=== PATIENT | female | born 1980 | race Caucasian/White ===

== ENCOUNTER 2017-03-09 14:51 | Emergency (ER) | payer MEDICAID ==
[~2017-03-09] VITALS: Ht 152.4 cm; Wt 79.0 kg
[~2017-03-09 14:51] MED LIST: IBUP800T25 PO; PERCOCET PO; PNV1TABL43 PO
[2017-03-09 14:53] VITALS: Ht 152.4 cm; Wt 79.0 kg
[2017-03-09] MEDS ORDERED: SOD CHLORIDE 0.9% 1,000 ML IV STA (16:03)
[2017-03-09] MEDS ORDERED: ONDANSETRON 4 MG INJ IV STA (16:03)
[2017-03-09 16:29] LABS: ADD SCAN DIFF NO
[2017-03-09 16:30] LABS: BASOPHILS % 0.3 % (0.0-2.0); EOSINOPHILS # 0.2 10^3/ul (0.0-0.5); EOSINOPHILS % 1.5 % (0.0-7.0); HEMATOCRIT 36.7 % (37.0-47.0); HEMOGLOBIN 11.4 g/dl (12.0-16.0); LYMPHOCYTES # 2.7 10^3/ul (0.8-2.9); MEAN CORPUSCULAR HEMOGLOBIN 27.6 pg (29.0-33.0); MEAN CORPUSCULAR HGB CONC 31.1 g/dl (32.0-37.0); MEAN CORPUSCULAR VOLUME 88.9 fl (82.0-101.0); MEAN PLATELET VOLUME 9.1 fl (7.4-10.4); MONOCYTE # 0.6 10^3/ul (0.3-0.9); MONOCYTES % 6.2 % (0.0-11.0); NEUTROPHIL # 6.5 10^3/ul (1.6-7.5); NEUTROPHILS % 64.6 % (39.0-77.0); PLATELET COUNT 392 10^3/UL (140-415); RED BLOOD COUNT 4.13 10^6/ul (4.20-5.40); RED CELL DISTRIBUTION WIDTH 13.5 % (11.5-14.5)
[2017-03-09 16:37] LABS: ADD UMIC YES; URINE BILIRUBIN (Dip) NEGATIVE (NEGATIVE); URINE BLOOD (Dip) 3+ (NEGATIVE); URINE COLOR LT. YELLOW (YELLOW); URINE GLUCOSE (Dip) NEGATIVE (NEGATIVE); URINE KETONES (Dip) NEGATIVE (NEGATIVE); URINE LEUKOCYTE ESTERASE (Dip) TRACE (NEGATIVE); URINE NITRITE (Dip) NEGATIVE (NEGATIVE); URINE TOTAL PROTEIN (Dip) NEGATIVE (NEGATIVE); URINE UROBILINOGEN (Dip) 0.2 E.U./dL (0.1-1.0)
--- NOTE | 2017-03-09 16:45 | RADRPT ---
PROCEDURE: OBSTETRICAL ULTRASOUND WITH ENDOVAGINAL IMAGES CLINICAL INDICATION: Vaginal bleeding TECHNIQUE: Multiple sonographic images of the pelvis were obtained utilizing a transabdominal and endovaginal technique. The images were reviewed on a PACS workstation. COMPARISON: None. FINDINGS: The uterus is retroverted. There is a single intrauterine with mean sac diameter of 1.41 cm and crown-rump length of 1.14 cm which is consistent with a gestational age of 6 weeks, 6 days . The estimated date of delivery by ultrasound is 10/27/2017 . No heart tones are detected. The right ovary measures 3.1 x 1.8 x 2.5 cm. The left ovary is not visualized. There is normal vascu lar flow in the right ovary. No significant ovarian lesions are seen. No significant pelvic free fluid is identified. IMPRESSION: An intrauterine gestation is identified with crown-rump length of 1.14 cm and no heart tones. Findings are consistent with early demise. Short-term follow-up ultrasound and serial Beta H CG measurements are recommended. Nonvisualization of the left ovary. RPTAT: EE Physician Ángel Date Time Electronically viewed and signed by Physician Ángel on 03/09/2017 16:45 /
[2017-03-09 17:12] LABS: BACTERIA,URINE MODERATE; SQUAMOUS EPITHELIAL CELL,UR MODERATE; URINE RBCS >200 /HPF (0)
[2017-03-09] MEDS ORDERED: CEPH-443 PO (17:21)
--- NOTE | 2017-03-09 18:12 | ERD ---
ER Documentation Chief Complaint Date/Time DATE: 03/09/17 TIME: 18:06 Chief Complaint 8 WEEKS PREGNAT WITH SPOTTING HPI 36 year old female with LMP January 07 presenting to the ER complaining of 6/ 10 pelvic pain describing it as crampy, coming and going with vaginal spotting for 1 day. Patient denies dysuria, nausea, vomiting, diarrhea, chest pain, shortness of breath. She has not taken any medication for this ROS All systems reviewed and are negative except as per history of present illness. Medications Home Meds Active Scripts Cephalexin* (Keflex*) 500 Mg Capsule, 500 MG PO QID for 5 Days, CAP Prov:HUSAM MARTINEZ PA-C 03/09/17 Oxycodone Hcl/Acetaminophen (Percocet) 1 Tab Tab, 2 TAB PO Q4H Y for PAIN LEVEL 6-10, #30 TAB 0 Refills Prov:MICHELL MIRZA MD 06/08/15 Ibuprofen* (Ibuprofen*) 800 Mg Tab, 800 MG PO Q8, #20 0 Refills Prov:MICHELL MIRZA MD 06/08/15 Reported Medications Vit/Fe Fumarate/Fa* ( Vitamin Tablet*) 1 Tab Tablet, 1 TAB PO DAILY, TAB 02/24/15 Allergies Allergies: Coded Allergies: No Known Drug Allergy (Verified Allergy, Mild, 02/24/15) PMhx/Soc Medical and Surgical Hx: pt denies Medical Hx, pt denies Surgical Hx History of Surgery: No Anesthesia Reaction: No Hx Neurological Disorder: No Hx Respiratory Disorders: No Hx Cardiac Disorders: No Hx Psychiatric Problems: No Hx Miscellaneous Medical Probl: No Hx Alcohol Use: No Hx Substance Use: No Hx Tobacco Use: No Smoking Status: Never smoker Physical Exam Vitals Vital Signs Date Time Temp Pulse Resp B/P Pulse Ox O2 Delivery O2 Flow Rate FiO2 03/09/17 14:53 98.1 90 18 140/77 99 Physical Exam Const: Developed well-nourished Head: Atraumatic Eyes: Normal Conjunctiva ENT: Normal External Ears, Nose and Mouth. Neck: Full range of motion..~ No meningismus. Resp: Clear to auscultation bilaterally Cardio: Regular rate and rhythm, no murmurs Abd: Soft, non tender, non distended. Normal bowel sounds Skin: No petechiae or rashes Back: No midline or flank tenderness Ext: No cyanosis, or edema Neur: Awake and alert Psych: Normal Mood and Affect Result Diagram: 03/09/17 1620 Results 24 hrs Laboratory Tests Test 03/09/17 16:14 03/09/17 16:20 Urine Color LT. YELLOW Urine Clarity SLIGHTLY CLOUDY Urine pH 6.0 Urine Specific [place] >=1.030 Urine Ketones NEGATIVE Urine Nitrite NEGATIVE Urine Bilirubin NEGATIVE Urine Urobilinogen 0.2 E.U./dL Urine Leukocyte Esterase TRACE Urine Microscopic RBC >200/HPF Urine Microscopic WBC 0-2/HPF Urine Squamous Epithelial Cells MODERATE Urine Bacteria MODERATE Urine Hemoglobin 3+ Urine Glucose NEGATIVE% Urine Total Protein NEGATIVE White Blood Count 10.010^3/ul Red Blood Count 4.1310^6/ul Hemoglobin 11.4g/dl Hematocrit 36.7% Mean Corpuscular Volume 88.9fl Mean Corpuscular Hemoglobin 27.6pg Mean Corpuscular Hemoglobin Concent 31.1g/dl Red Cell Distribution Width 13.5% Platelet Count 84590^3/UL Mean Platelet Volume 9.1fl Neutrophils % 64.6% Lymphocytes % 27.0% Monocytes % 6.2% Eosinophils % 1.5% Basophils % 0.3% Nucleated Red Blood Cells % 0.0/100WBC Neutrophils # 6.510^3/ul Lymphocytes # 2.710^3/ul Monocytes # 0.610^3/ul Eosinophils # 0.210^3/ul Basophils # 0.010^3/ul Nucleated Red Blood Cells # 0.010^3/ul Beta HCG, Quantitative 5042.8mIU/ml Current Medications Medications (Trade) Dose Ordered Sig/Wan Route PRN Reason Start Time Stop Time Status Last Admin Dose Admin Sodium Chloride (NS) 1,000 ml @ 1,000 mls/hr Q1H STAT IV 03/09/17 16:03 03/09/17 16:08 DC Ondansetron HCl (Zofran Inj) 4 mg ONCE STAT IV 03/09/17 16:03 03/09/17 16:08 DC Procedures/MDM This is a 36-year-old female stating she is 8 weeks presenting to the emergency department complaining of pelvic pain and vaginal spotting for 1 day which is likely due to early demise. Patient is suitable to follow- up with her PATIENT CARE ASSISTANT in 2 days to repeat ultrasound and growth hormone to confirm. In the ED blood work was done, patient did have evidence of mild anemia. No leukocytosis. Beta hCG was 5402. OB ultrasound was done and radiologist stated that an intrauterine gestation is identified with no heart tones. I discussed with patient to follow-up in 2 days with her PATIENT CARE ASSISTANT or return to this facility for repeat ultrasound and blood work. Patient at this time is stable for discharge home. Discussed return the ER for any worsening sinus symptoms. She understands and agrees with OB ultrasound: An intrauterine gestation is identified with crown-rump length of 1.14 cm and no heart tones. Findings are consistent with early demise. Short- term follow-up ultrasound and serial Beta HCG measurements are recommended. Nonvisualization of the left ovary. Departure Diagnosis: Primary Impression: Threatened Additional Impression: UTI (urinary tract infection) Condition: Stable Patient Instructions: Understanding Urinary Tract Infections (UTIs), Possible Miscarriage (Threatened ) Referrals: [facility] Additional Instructions: repeat ultrasound and bloodwork in two days with your doctor. Make an appointment as soon as possible. Take documents with you Repetir el ultrasonido y la clay en dos rodriguez con [facility]. Kylee mino kenia garcia pronto leidy sea posible. Lleve documentos con usted Visite a [facility] maana para un EXAMEN.Regrese a estas instalaciones si no se mejora leidy esperbamos o leidy le dijimos. Take all medicines as directed. [place] toda la medicina adelaida y leidy se le indic. HUSAM MARTINEZ PA-C March 09, 2017 18:12
== END 2017-03-09 17:39 | disposition home or self-care (01) ==
LOC: FTE 14:51
DX: O20.0 Threatened abortion (principal); O23.41 Unspecified infection of urinary tract in pregnancy, first trimester; R10.2 Pelvic and perineal pain; Z3A.08 8 weeks gestation of pregnancy
CPT/HCPCS: 76801; 76817; 81001; 84702; 85025; Z7502; J7030

== ENCOUNTER 2018-05-25 15:25 | Outpatient (CLI) | END 2018-05-25 17:20 | disposition home or self-care (01) ==

== ENCOUNTER 2018-05-31 13:10 | Outpatient (CLI) | END 2018-05-31 16:38 | disposition home or self-care (01) ==

== ENCOUNTER 2018-06-01 09:15 | Inpatient (IN) | END 2018-06-04 14:07 | disposition home or self-care (01) | DRG 766 ==